=== PATIENT | female | born 2000 | race Caucasian/White ===

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

== ENCOUNTER 2023-01-01 14:10 | Observation (INO) | payer OTHER, MEDICAID, SELFPAY ==
--- NOTE | ~2023-01-01 | US_ITS ---
US OB limited 01/01/2023 16:31 Indication: Evaluate well-being. Bleeding. Check placenta. Procedure: High-resolution Limited obstetrical ultrasound utilizing transabdominal technique Comparison: No prior studies for comparison. Findings: There is a single living intrauterine in vertex presentation. Placenta is anterio r without previa. The placenta is grossly normal, without suggestion of placenta abruption. However, ultrasound is not diagnostic of abruption since acute hemorrhage can be isoechoic to be placenta. R ecommend clinical correlation. heart rate is 146 BPM. Amniotic fluid is subjectively normal. Impression: 1: Single living intrauterine in vertex presentation. 2: Anterior placenta without previa. Reviewed, dictated and finalized at location A. Impression: 1: Single living intrauterine in vertex presentation. 2: Anterior placenta without previa.
--- NOTE | 2023-01-01 14:10 | OBADM ---
This patient, Yoselin Nance, admitted to the OB room OB Post 116 for observation. Patient/family oriented to hospital policies and general routines including ID bracelet, bed and alarms, visiting hours, pain management, procedures, bathroom and other care routines, personal items, smoking policy, room service/diet, and visiting hours. Patient/Family are encouraged to report perceived risks to care and to ask questions if they do not understand what they are told or what they should do.
[2023-01-01 14:30] VITALS: BMI 29.6
[2023-01-01 14:46] VITALS: BP 111/50; PULSE 83
[2023-01-01 15:01] VITALS: BP 120/49; PULSE 89
--- NOTE | 2023-01-01 15:12 | PC.NURSE ---
Dr Reese Acevedo.
[2023-01-01 15:16] VITALS: BP 135/61; PULSE 81
--- NOTE | 2023-01-01 15:18 | PC.NURSE ---
Dr Leigh notified of adm c/o bleeding, reassuring FHT's at 19 weeks. US ordered and can dc home if US is WNL.
[2023-01-01 15:31] VITALS: BP 126/71; PULSE 87
[2023-01-01 15:46] VITALS: BP 133/70; PULSE 74
[2023-01-01 16:18] LABS: Appearance Urine Turbid (Clear); Bacteria Urine 1+ /hpf; Bilirubin Urine 1+ (Negative); Blood Urine Trace (Negative); Calcium Oxalate Crystals Urine Present /hpf; Color Urine Dark Yellow (Yellow); Glucose Urine UA Negative (Negative); Ketones Urine Trace mg/dL (Negative); Leukocyte Esterase Ur Trace LEU/UL (NEGATIVE); Mucus Urine Present /lpf; Need Manual Microscopic Reviewed; Nitrate Urine Negative (Negative); Protein Urine 1+ mg/dL (Negative); Specific Grav Ur 1.034 (1.001-1.035); Squamous Epithelial Cell Urine Few /hpf (Few); WBC Urine 0-5 /hpf (0-3)
[2023-01-01 16:19] LABS: Add Urine Microscopic? YES
--- NOTE | 2023-01-01 17:33 | PC.NURSE ---
1715--Dr. Clinton on unit, labs results and u/s report reviewed per MD. Orders to DC home and have pt. f/u at her next scheduled appt.
--- NOTE | 2023-01-28 12:54 | P.PNOB_ITS ---
OB - Triage/Final Diagnosis Visit Information Comments/Additional reasons for admission: I have assessed the risk for this patient, Yoselin Nance, and determined that she would benefit from observation care. Evaluation Laboratory results: Laboratory Tests 01/01/23 15:51 Urine Color Dark yellow Urine Appearance Turbid H Urine pH 6.0 Ur Specific [place] 1.034 Urine Protein 1+ H Urine Glucose (UA) Negative Urine Ketones Trace H Ur Blood (Man) Trace Urine Nitrate Negative Urine Bilirubin 1+ H Urine Urobilinogen 1.0 Ur Leukocyte Esterase Trace H Add Ur Microanalysis Reviewed Urine RBC 3-5 H Urine WBC 0-5 Ur Squamous Epith Cells Few Calcium Oxalate Crystal Present Urine Bacteria 1+ H Urine Casts 3-5 Urine Mucus Present Final Diagnosis (1) Spotting affecting : Code(s): O26.859 - Spotting complicating , unspecified trimester Status: Acute
== END 2023-01-01 17:12 | disposition home or self-care (01) ==
PROVIDERS: Admitting Provider Obstetrics & Gynecology; Visit Provider Obstetrics & Gynecology
DX: O26.852 Spotting complicating pregnancy, second trimester (principal); Z3A.19 19 weeks gestation of pregnancy
CPT/HCPCS: 76815; 81001; 87086; 87088; G0378; G0379

== ENCOUNTER 2023-01-07 08:34 | Observation (INO) | payer OTHER, MEDICAID, SELFPAY ==
--- NOTE | ~2023-01-07 | US_ITS ---
EXAMINATION: US OB limited DATE: 01/07/2023 10:01 INDICATION: Vaginal bleeding during second trimester TECHNIQUE: Real-time ultrasound of the pelvis was performed. The interpreting radiologist was not pre sent for the study. COMPARISON: None. 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 There is a single living fetus in vertex presentation. The nor mal placenta is anterior fundal, not low-lying and with no evident subchorionic hematoma. Normal cerv ical length of 4.6 cm. Normal four-chamber heart with heart rate of 141 beats per minute (bpm). The amniotic fluid volume is subjectively normal. IMPRESSION: 1. Single living fetus in vertex presentation with heart rate of 141 bpm. 2. Normal anterior fundal placenta with no evident subchorionic hematoma. 3. 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 Reviewed, dictated and finalized at location A. IMPRESSION: 1. Single living fetus in vertex presentation with heart rate of 141 bpm . 2. Normal anterior fundal placenta with no evident subchorionic hematoma. 3. Bicornuate versus didelphys uterus with in the right uterine moiet y.
[2023-01-07 09:01] VITALS: BP 115/57; PULSE 72
--- NOTE | 2023-01-07 09:07 | PC.NURSE ---
Dr Leigh informed of adm c/o of spotting and passing tissue, informed of positive FHT's. Orders received.
--- NOTE | 2023-01-07 10:36 | PC.NURSE ---
Dr Leigh informed of US report and that we have the tissue sample that the patient brought in with her here. OK to dc patient home, he will see patient next week, MD will be down to see tissue later.
--- NOTE | 2023-01-08 11:01 | PM.OBTRLD ---
OB - Triage/Final Diagnosis Visit Information Date of evaluation: 01/08/23 Reason for evaluation: other (bleeding) Comments/Additional reasons for admission: I have assessed the risk for this patient, Yoselin Nance, and determined that she would benefit from observation care.
== END 2023-01-07 11:06 | disposition home or self-care (01) ==
PROVIDERS: Admitting Provider Obstetrics & Gynecology; Visit Provider Obstetrics & Gynecology
DX: O26.852 Spotting complicating pregnancy, second trimester (principal); Z3A.20 20 weeks gestation of pregnancy
CPT/HCPCS: 76815; G0378; G0379

== ENCOUNTER 2023-03-01 17:03 | Observation (INO) | payer OTHER, MEDICAID, SELFPAY ==
[2023-03-01] VITALS (10 sets, daily range): BP systolic 116–130; BP diastolic 51–81; PULSE 79–107
--- NOTE | 2023-03-01 17:48 | ECG_ITS ---
Measurements Intervals [place] Rate: 83 P: 59 NM: 121 QRS: 67 QRSD: 84 T: 4 QT: 348 QTc: 410 Interpretive Statements SINUS RHYTHM WITH SINUS ARRHYTHMIA NONSPECIFIC ST & T-WAVE ABNORMALITY ABNORMAL ECG COMPARED TO ECG 06/16/2021 12:12:19 T-WAVE ABNORMALITY NOW PRESENT Electronically Signed On 03-02-2023 16:52:22 COUNTERINTELLIGENCE/HUMINT SPECIALIST by Wilton Jay M.D.
[2023-03-01 18:17] LABS: Basophils Percent Auto 0.2 % (0.2-1.2); Hematocrit 39.1 % (37.0-47.0); Hemoglobin 13.4 g/dL (12.0-15.0); Immature Granulocyte Absolute 0.06 K/mm3 (0.00-0.031); Immature Granulocyte Percent A 0.5 % (0-0.5); Lymphocytes Absolute Auto 1.89 K/mm3 (0.9-3.2); Lymphocytes Percent Auto 14.7 % (18.3-44.2); Mean Corpuscular HGB Conc 34.3 g/dl (32-36); Mean Corpuscular Hemoglobin 31.9 pg (26-34); Mean Corpuscular Volume 93.1 fl (80-100); Mean Platelet Volume 10.8 fl (7.4-10.4); Monocytes Absolute Auto 0.6 K/mm3 (0.1-0.6); Monocytes Percent Auto 4.8 % (2.6-8.5); Neutrophils Absolute Auto 10.3 K/mm3 (1.3-6.7); Neutrophils Percent Auto 79.8 % (45.5-73.1); Platelet Count Result 288 k/mm3 (150-375); Red Cell Distribution Width 13.5 % (11.5-14.5); White Blood Count 12.9 K/mm3 (4.5-10.0)
[2023-03-01 18:30] LABS: Alanine Aminotransferase 13 U/L (6-35); Albumin Level 3.8 g/dL (3.5-5.1); Alkaline Phosphatase 109 U/L (38-126); Anion Gap 8 mmol/L (8-16); Aspartate Amino Transferase 16 U/L (14-36); Bilirubin,Total 0.6 mg/dL (0.2-1.3); Blood Urea Nitrogen 4 mg/dL (7-17); Calcium 8.7 mg/dL (8.4-10.2); Carbon Dioxide 20 mmol/L (22-30); Chloride 106 mmol/L (98-107); Estimated Glomerular Filt Rate > 60; Glucose 93 mg/dL (65-110); Potassium 3.4 mmol/L (3.4-5.0); Sodium 134 mmol/L (137-145)
[2023-03-01 18:38] LABS: Appearance Urine Turbid (Clear); Bacteria Urine Rare /hpf; Bilirubin Urine 1+ (Negative); Blood Urine Negative (Negative); Color Urine Dark Yellow (Yellow); Glucose Urine UA Negative (Negative); Ketones Urine 1+ mg/dL (Negative); Leukocyte Esterase Ur 1+ LEU/UL (Negative); Need Manual Microscopic Reviewed; Nitrate Urine Negative (Negative); Non Pathogenic Casts 0-2; Protein Urine 1+ mg/dL (Negative); Specific Grav Ur 1.032 (1.001-1.035); Squamous Epithelial Cell Urine Moderate /hpf (Few)
[2023-03-01 18:43] LABS: Add Urine Microscopic? YES
--- NOTE | 2023-03-09 08:16 | PM.OBTRLD ---
OB - Triage/Final Diagnosis Visit Information Comments/Additional reasons for admission: I have assessed the risk for this patient, Yoselin Nance, and determined that she would benefit from observation care. Evaluation Laboratory results: Laboratory Tests 03/01/23 18:05 WBC 12.9 H RBC 4.20 Hgb 13.4 Hct 39.1 MCV 93.1 MCH 31.9 MCHC 34.3 RDW 13.5 Plt Count 288 MPV 10.8 H Immature Gran % (Auto) 0.5 Neut % (Auto) 79.8 H Lymph % (Auto) 14.[address] [place] % (Auto) 4.8 Eos % (Auto) 0.0 Baso % (Auto) 0.2 Lymph # (Auto) 1.89 [place] # (Auto) 0.6 Eos # (Auto) 0.0 Baso # (Auto) 0.0 Abs Immat Gran (auto) 0.06 H Absolute Neuts (auto) 10.3 H Absolute Nucleated RBC 0.0 Nucleated RBC % 0.0 Sodium 134 L Potassium 3.4 Chloride 106 Carbon Dioxide 20 L Anion Gap 8 BUN 4 L Creatinine 0.40 L Estim Creat Clear Calc Not Reportable Estimated GFR > 60 Glucose 93 Calcium 8.7 Total Bilirubin 0.6 AST 16 ALT 13 Alkaline Phosphatase 109 Total Protein 7.0 Albumin 3.8 Urine Color Dark yellow Urine Appearance Turbid H Urine pH 6.0 Ur Specific [place] 1.032 Urine Protein 1+ H Urine Glucose (UA) Negative Urine Ketones 1+ H Ur Blood (Man) Negative Urine Nitrate Negative Urine Bilirubin 1+ H Urine Urobilinogen 1.0 Add Ur Microanalysis Reviewed Leukocyte Esterase Rfl 1+ H Urine RBC 11-20 H Urine WBC 11-20 H Ur Squamous Epith Cells Moderate Urine Bacteria Rare Urine Casts 0-2 Final Diagnosis (1) Fall: Code(s): W19.XXXA - Unspecified fall, initial encounter Status: Acute (2) Spotting affecting : Code(s): O26.859 - Spotting complicating , unspecified trimester Status: Acute
== END 2023-03-01 19:40 | disposition home or self-care (01) ==
PROVIDERS: Admitting Provider Obstetrics & Gynecology; Visit Provider Obstetrics & Gynecology
DX: Z04.3 Encounter for examination and observation following other accident (principal); O26.852 Spotting complicating pregnancy, second trimester; Z3A.27 27 weeks gestation of pregnancy
CPT/HCPCS: 36415; 80053; 81001; 85025; 87086; 87088; 93005; G0378; G0379

== ENCOUNTER 2023-05-05 16:13 | Outpatient (CLI) | payer OTHER, MEDICAID, SELFPAY ==
[2023-05-05 16:29] VITALS: BP 142/69; PULSE 82
[2023-05-05 16:31] VITALS: BP 132/66; PULSE 81
[2023-05-05 16:46] VITALS: BP 125/70; PULSE 78
== END 2023-05-05 17:15 | disposition home or self-care (01) ==
LOC: ANHOBOP 16:19 → ANHLDR 16:19
PROVIDERS: Visit Provider Obstetrics & Gynecology
DX: O42.90 Premature rupture of membranes, unspecified as to length of time between rupture and onset of labor, unspecified weeks of gestation (principal); Z3A.00 Weeks of gestation of pregnancy not specified
CPT/HCPCS: 59025; 99199

== ENCOUNTER 2023-05-08 15:40 | Outpatient (CLI) | payer OTHER, MEDICAID, SELFPAY ==
[2023-05-08 16:31] VITALS: BP 124/50; PULSE 97
[2023-05-08 16:35] VITALS: BP 124/50; PULSE 94
== END 2023-05-08 16:45 | disposition home or self-care (01) ==
LOC: ANHOBOP 16:22 → ANHLDR 05-13 06:30
PROVIDERS: Visit Provider Obstetrics & Gynecology
DX: O42.90 Premature rupture of membranes, unspecified as to length of time between rupture and onset of labor, unspecified weeks of gestation (principal); Z3A.00 Weeks of gestation of pregnancy not specified
CPT/HCPCS: 59025; 84112; 99199

== ENCOUNTER 2023-05-11 19:12 | Inpatient (IN) | payer MEDICAID, SELFPAY ==
[2023-05-11] VITALS (45 sets, daily range): BP systolic 107–131; BP diastolic 47–85; PULSE 60–110; TEMP 36.6; O2SAT 90–100
[2023-05-11 21:20] LABS: Basophils Percent Auto 0.2 % (0.2-1.2); Eosinophils Absolute Auto 0.1 K/mm3 (0-0.3); Eosinophils Percent Auto 0.5 % (0-4.4); Hematocrit 42.1 % (37.0-47.0); Hemoglobin 14.2 g/dL (12.0-15.0); Immature Granulocyte Absolute 0.04 K/mm3 (0.00-0.031); Immature Granulocyte Percent A 0.4 % (0-0.5); Lymphocytes Absolute Auto 2.35 K/mm3 (0.9-3.2); Lymphocytes Percent Auto 22.9 % (18.3-44.2); Mean Corpuscular HGB Conc 33.7 g/dl (32-36); Mean Corpuscular Hemoglobin 31.5 pg (26-34); Mean Corpuscular Volume 93.3 fl (80-100); Mean Platelet Volume 11.7 fl (7.4-10.4); Monocytes Absolute Auto 0.6 K/mm3 (0.1-0.6); Monocytes Percent Auto 6.1 % (2.6-8.5); Neutrophils Absolute Auto 7.2 K/mm3 (1.3-6.7); Neutrophils Percent Auto 69.9 % (45.5-73.1); Platelet Count Result 201 k/mm3 (150-375); Red Blood Count 4.51 M/mm3 (4.2-5.4); Red Cell Distribution Width 13.7 % (11.5-14.5); White Blood Count 10.3 K/mm3 (4.5-10.0)
--- NOTE | 2023-05-11 21:59 | PM.OBPRVD ---
OB - Vaginal Delivery Note Procedure Delivery date: 05/11/23 Induction method: None Delivery monitor: External FHT Route of delivery: Episiotomy description: None Laceration Description: None Specimen: No Quantitative Blood Loss (ml): 61 Anesthesia type: None Disposition: Floor Complications: No immediate complications Baby Date of : 05/11/23 Time of : 21:34 Weeks of gestation at delivery: 37 Infant gender: Female Weight (pounds): 5 Weight (ounces): 9 presentation: vertex position: Right Occiput Anterior Placenta delivery description: Spontaneous Cord Vessel Description: 3 Vessels score one minute: 8 score five minutes: 9
--- NOTE | 2023-05-11 22:01 | P.DS_ITS ---
DS: Admitting Diagnosis Discharge Date 05/13/2023 Admitting Diagnosis Term DS: Discharge Diagnosis Discharge Diagnosis (1) Term : Code(s): Z34.90 - Encounter for supervision of normal , unspecified, unspecified trimester Status: Acute DS: Summary Hospital Course Reason for hospitalization: patient was admitted in active labor at37+ weeks gestation Hospital Course: patient had a precipitous spontaneous vaginal delivery which was unremarkable on 05/11/2023. Her hospital course there on was unremarkable. She remained afebrile. She was up, voiding without difficulty, eating regular diet, ambulating, generally without complaints. Time Spent with Patient Time attestation: Total time spent providing and/or coordinating discharge services: DS: Data Data Completed and Pending Labs on day of discharge: Labs from last 24 hours 05/11/23 21:14 WBC 10.3 H RBC 4.51 Hgb 14.2 Hct 42.1 MCV 93.3 MCH 31.5 MCHC 33.7 RDW 13.7 Plt Count 201 MPV 11.7 H Immature Gran % (Auto) 0.4 Neut % (Auto) 69.9 Lymph % (Auto) 22.9 [place] % (Auto) 6.1 Eos % (Auto) 0.5 Baso % (Auto) 0.2 Lymph # (Auto) 2.35 [place] # (Auto) 0.6 Eos # (Auto) 0.1 Baso # (Auto) 0.0 Abs Immat Gran (auto) 0.04 H Absolute Neuts (auto) 7.2 H Absolute Nucleated RBC 0.0 Nucleated RBC % 0.0 RPR Pending Discharge Plan Discharge Attending physician on discharge: Duran Chang Discharging Clinician: Duran Chang Patient Disposition: Home, Self-Care Activity: july shower, no straining and pelvic rest Diet: heart healthy Wound Care Instructions: follow printed instructions Patient Instructions: Antibiotic Form Stand Alone Forms: General Discharge Information Follow-up/Referrals: Duran Chang MD [Physician] - Discharge Medications: No Action vit-ferrous sulfat-FA 27 mg iron- 0.8 mg Tablet 1 tablet PO DAILY Date of admission: 05/11/23 19:12 Primary Care Provider: PHYSICIAN,BUSINESS [employer] SALES ASSISTANT Admitting Provider: Duran Chang Attending physician on admission: Duran Chang Condition: Stable
--- NOTE | 2023-05-11 22:03 | PM.IMHP ---
H&P: HPI History of Present Illness Date/Time: 05/11/23 22:03 Chief Complaint: Labor at 37 weeks Narrative: this is a 22-year-old 2 para 0101 whose last menstrual period is August of 2022, EDC is 05/27/2023, confirmed by 12 week ultrasound who presents at37+ weeks gestation in active labor. Her has been uncomplicated with a negative group B strep PMFSH Social History Social History Smoking status: Never smoker Second hand tobacco smoke exposure: No Substance use: current Spiritual care concerns: No Meds Home Medications and Allergies Home Medications Medication Instructions Recorded Confirmed Type vitamin-ferrous sulfate 1 tablet PO DAILY 12/08/21 12/08/21 History 27 mg iron-folic acid 0.8 mg tablet Allergies Allergy/AdvReac Type Severity Reaction Status Date / Time Penicillins Allergy Rash Verified 12/08/21 07:01 Vital Signs Vital Signs - 24 hr 05/11/23 21:06 05/11/23 21:13 05/11/23 21:14 Pulse Rate Blood Pressure Pulse Oximetry 100 100 99 05/11/23 21:20 05/11/23 21:25 05/11/23 21:30 Pulse Rate Blood Pressure Pulse Oximetry 99 100 100 05/11/23 21:35 05/11/23 21:39 05/11/23 21:39 Pulse Rate Blood Pressure Pulse Oximetry 100 97 96 05/11/23 21:44 05/11/23 21:49 05/11/23 21:54 Pulse Rate Blood Pressure Pulse Oximetry 100 94 97 05/11/23 21:59 05/11/23 22:01 Pulse Rate 87 86 Blood Pressure 130/80 127/85 Pulse Oximetry 97 Exam Const: General: cooperative, healthy appearing and comfortable Nutritional Appearance: average body habitus Orientation/consciousness: oriented to person, oriented to place and oriented to time Resp: Effort & Inspection: normal respiratory effort Cardio: Rate: regular rate Rhythm: regular rhythm Heart sounds: S1 normal heart sound present and S2 normal heart sound present GI: Inspection: normal to inspection ( gravid soft uterus) : Speculum Exam - Cervix: normal appearance of the cervix ( rapid change from 5cm to complete. FHTs reassuring clear fluid seen) H&P: Results Labs Labs: Short CBC 05/11/23 Range/Units 21:14 WBC 10.3 H (4.5-10.0) K/mm3 Hgb 14.2 (12.0-15.0) g/dL Hct 42.1 (37.0-47.0) % Plt Count 201 (150-375) k/mm3 Assessment and Plan Assessment and plan (1) Term : Code(s): Z34.90 - Encounter for supervision of normal , unspecified, unspecified trimester Status: Acute Plan an imminent spontaneous vaginal delivery is expected
[2023-05-11] MEDS: OXYTOCIN 30 UNITS/NS 500 ML 30 UNITS/500 ML BAG 125 UNITS IV CONT (22:13)
[2023-05-12] VITALS (16 sets, daily range): BP systolic 102–122; BP diastolic 50–73; PULSE 61–113; RESP 16–20; TEMP 36.4–36.8; O2SAT 91–100; BMI 30.8
--- NOTE | 2023-05-12 00:11 | LDADM ---
This patient, Yoselin Nance, was admitted to Labor/Delivery/Recovery 105 on 05/11/23 at 19:12. Plans for labor, pain management and were discussed with patient. Patient/family oriented to hospital policies and general routines including ID bracelet, bed and alarms, visiting hours, pain management, procedures, bathroom and other care routines, personal items, smoking policy, room service/diet and guest tray routines, infant security routines, and visiting hours. Patient/Family are encouraged to report perceived risks to care and to ask questions if they do not understand what they are told or what they should do. See [facility] for further documentation.
--- NOTE | 2023-05-12 01:07 | OBPPTRN ---
Patient transferred to post room #284 via w/c. Support person present. Oriented to unit, room, information board, rooming in, admission packet and security measures. Patient verbalizes understanding.
[2023-05-12 05:25] LABS: Hematocrit 39.3 % (37.0-47.0)
--- NOTE | 2023-05-12 06:54 | PM.OBPNVD ---
OB - PN: Subj Subjective Date/time seen: 05/12/23 06:54 Patient comments: no complaints and pain well controlled baby status: doing well OB - PN: Obj Data Labs 05/12/23 04:05 Labs: Laboratory Results - last 24 hr 05/11/23 05/12/23 21:14 04:05 WBC 10.3 H RBC 4.51 Hgb 14.2 13.0 Hct 42.1 39.3 MCV 93.3 MCH 31.5 MCHC 33.7 RDW 13.7 Plt Count 201 MPV 11.7 H Immature Gran % (Auto) 0.4 Neut % (Auto) 69.9 Lymph % (Auto) 22.9 [place] % (Auto) 6.1 Eos % (Auto) 0.5 Baso % (Auto) 0.2 Lymph # (Auto) 2.35 [place] # (Auto) 0.6 Eos # (Auto) 0.1 Baso # (Auto) 0.0 Abs Immat Gran (auto) 0.04 H Absolute Neuts (auto) 7.2 H Absolute Nucleated RBC 0.0 Nucleated RBC % 0.0 Blood Type A Positive Antibody Screen Negative OB - PN A/P Plan day: 1 Plan: routine care Time Spent With Patient Time: Total time spent is greater than 50% in coordination of care (as documented) at patient's floor/unit and/or counseling patient: Exam Const: General: cooperative, healthy appearing and comfortable Nutritional Appearance: average body habitus Orientation/consciousness: oriented to person and oriented to place Resp: Effort & Inspection: normal respiratory effort Cardio: Rate: regular rate Rhythm: regular rhythm Heart sounds: S1 normal heart sound present GI: Inspection: normal to inspection
[2023-05-12] MEDS: MULTIVIT/MIN/PREN/FOL AC/IRON TABLET 1 TAB PO (08:30)
[2023-05-12] MEDS: IBUPROFEN 600 MG TABLET PO ×2 (08:30→21:20)
[2023-05-12] MEDS: DOCUSATE SODIUM 100 MG CAPSULE PO (08:30)
[2023-05-12] MEDS: LANOLIN (LANSINOH) 7.5 GM CREAM 1 APPLIC TOPICAL (08:30)
--- NOTE | 2023-05-12 09:09 | PC.NURSE ---
On 05/12/23, the student, Mackenzie Owens, provided care and completed [facility] documentation on this patient. I have reviewed the student's documentation and agree with the findings.
[2023-05-12 10:58] LABS: Rapid Plasma Reagin Non-Reactive (NonReactive)
--- NOTE | 2023-05-12 14:56 | WPDANLDPN2 ---
Anes-Prog Note L&D Date/Time: 05/12/23 14:56 Comfortable throughout: labor and delivery Neuraxial method: epidural Epidural/Spinal procedure site: clean & non-tender Neuro status: Neuro function grossly intact. Cardiovascular status: normal Respiratory status: normal Airway patency: baseline Mental status: baseline Post-Op hydration status: normal Vital Signs: Last Vital Signs Temp 98.1 F 05/12/23 12:40 Pulse 64 05/12/23 12:40 Resp 16 05/12/23 12:40 BP 112/60 05/12/23 12:40 Pulse Ox 96 05/12/23 12:40 O2 Del Method Room Air 05/12/23 01:20 Pain score (VAS): 0/10 I/O: Intake & Output 05/11/23 05/12/23 05/12/23 23:59 07:59 15:59 Output Total 1061 50 Balance -1061 -50 Post-procedural complaints: none Patient feedback: Patient satisfied with anesthetic care.
--- NOTE | 2023-05-12 16:39 | PC.NURSE ---
[id number] Introductions were made, then consulted with patient to assess needs related to . (last baby born 17 months ago) Mother led the conversation with her?plans to feed?her infant, the?experience so far, with a history of one month with her first stating this one is doing better . Parents first child was born at 35 EGA and this one is a late in of 37EGA. Encouraged understanding of the benefits of skin to skin (demonstrating unwrapping infant and placing upright on her chest), stimulating with massage touch, changing positions to encourage wakefulness, how to watch for early feeding cues, responsive feeding, feeding on demand (aiming for 8-12 times in 24 hours, about every 2-3 hours), milk production, building/maintaining a milk supply, duration of feeding, signs of adequate intake/output and how to record on the feeding sheet. Mother works well with her infant with encouragement and education. Reviewed positioning and ear, shoulder, hip alignment, supporting the breast to facilitate a deep latch, asymmetrical latch (off-center), leading with the chin with a big, open, wide gape and body close to mother. Infant latched optimally to the right, then left breast in football position. Education given to the mother of how to visualize the suckling (with good rocking jaw motion), swallows (dropping of the lower jaw) and how to listen for drinking at the breast (the ka sound) which infant demonstrated well. was able to maintain latch without pain to mother protecting the nipple with optimal positioning and latching. Reviewed comfort measures of healing with a warm, wet washcloth to rinse breast, then leave open to air-dry, good handwashing when or touching the breast/nipples to prevent infection. Mother voiced understanding of skin to skin, stimulating with massage touch, responsive feedings, hand expressed colostrum, talking to infant to encourage if it has been 2 -2.5 hours since the start of the last , to call if does not latch, or if there is discomfort with . Resources used for education were facilitated with the tool/mom and baby guide. Inpatient/outpatient resources provided with feeding sheet, name written on the communication board, and the mom/baby guide. Parents voiced understanding of information, demonstrated learning and will call if there is a request for assistance. Reported to the Primary RN.
[2023-05-12] MEDS: ACETAMINOPHEN 325 MG TABLET 650 MG PO (21:20)
[2023-05-13] MEDS: IBUPROFEN 600 MG TABLET PO (04:50)
--- NOTE | 2023-05-13 06:41 | P.PNOB_ITS ---
OB - PN: Subj Subjective Date/time seen: 05/13/23 06:41 Patient comments: no complaints and pain well controlled baby status: doing well and nursing well OB - PN: Obj Data Labs 05/12/23 04:05 Labs: Laboratory Results - last 24 hr 05/11/23 21:14 RPR Non-reactive OB - PN A/P Plan day: 2 Plan: routine care, discharge home and follow up 6 weeks Time Spent With Patient Time: Total time spent is greater than 50% in coordination of care (as documented) at patient's floor/unit and/or counseling patient: Time with patient: less than 15 minutes Exam Const: General: cooperative, healthy appearing and comfortable Nutritional Appearance: average body habitus Orientation/consciousness: oriented to person, oriented to place and oriented to time HENMT: Head: normal to inspection Resp: Effort & Inspection: normal respiratory effort Cardio: Rate: regular rate Rhythm: regular rhythm Heart sounds: S1 norm al heart sound present and S2 normal heart sound present GI: Inspection: normal to inspection
[2023-05-13] MEDS: DOCUSATE SODIUM 100 MG CAPSULE PO (07:11)
[2023-05-13] MEDS: MULTIVIT/MIN/PREN/FOL AC/IRON TABLET 1 TAB PO (07:11)
[2023-05-13 08:10] VITALS: BP 122/72; PULSE 77; RESP 18; TEMP 36.9; O2SAT 100
== END 2023-05-13 09:51 | disposition home or self-care (01) | DRG 560 ==
LOC: ANHLDR 22:03 → ANHOB2 05-12 01:15
PROVIDERS: Obstetrics & Gynecology; Admitting Provider Pediatrics; Visit Provider Obstetrics & Gynecology
DX: O62.3 Precipitate labor (principal); Z3A.37 37 weeks gestation of pregnancy; Z37.0 Single live birth
CPT/HCPCS: 36415; 85014; 85018; 85025; 86592; 86850; 86900; 86901; A9270; J2590; J2795